=== PATIENT | female | born 2000 | race Caucasian/White ===

== ENCOUNTER → 2023-09-07 09:47 | Outpatient (REF) | payer BC, SELFPAY | LOC: HWRAD 09:47 | PROVIDERS: ATTENDING PHYSICIAN Nurse Practitioner Family | DX: R22.1 Localized swelling, mass and lump, neck (principal) | CPT/HCPCS: 76536 ==

== ENCOUNTER → 2024-01-17 13:44 | Outpatient (REF) | payer BC, SELFPAY ==
[2024-01-17 14:00] VITALS: BP 120/83; BP_SYST 86
== END ==
LOC: RADI 13:44
PROVIDERS: ATTENDING PHYSICIAN Nurse Practitioner Family
DX: E04.1 Nontoxic single thyroid nodule (principal)
CPT/HCPCS: 88173; 10005